=== PATIENT | female | born 1975 | race African-American/Black ===

== ENCOUNTER 2017-06-21 18:50 | Emergency (ER) | payer SELFPAY ==
[~2017-06-21] VITALS: Ht 162.6 cm; Wt 63.5 kg
[2017-06-21 19:01] VITALS: Ht 162.6 cm; Wt 63.5 kg
--- NOTE | 2017-06-21 20:52 | EN ---
Date/Time of Note Date/Time of Note DATE: 06/21/17 TIME: 20:49 ER Progress Note This 41-year-old female who presented to the emergency department today complaining of abdominal pain for the past couple of days. Patient has had back pain and abdominal pain intermittently for the past few weeks. Patient indicated that she started having some diarrhea yesterday. Patient indicated that she was 21 weeks . This was not mentioned in triage and therefore I did place a call to the labor and delivery department. At this time [facility] is afebrile and otherwise well-appearing I do not feel that she has an acute surgical abdomen at this time. Patient was sent up to labor and delivery for further evaluation. I did place a call to them and they recommended that the patient be brought up as she is greater than 21 weeks based on patient's estimated date of delivery of October 22. AUGUSTINE STUART PA-C Jun 21, 2017 20:51
--- NOTE | 2017-06-22 04:54 | ERD ---
ER Documentation Chief Complaint Date/Time DATE: 06/22/17 TIME: 04:47 Chief Complaint Mid umbillical pain since last night with diarrhea last night HPI This a 41-year-old female who presents to the emergency department today complaining of some umbilical pain for the past couple of days. Patient states that 2 weeks ago she had pain on both sides of her stomach and her back. States that she saw her doctor 3 weeks ago and had a normal ultrasound. States that she is 21 weeks . States she has some nausea but no vomiting. States she does have some mild diarrhea. Denies any dysuria, fevers or chills, vaginal bleeding. States she has not taken any medication for the pain. ROS All systems reviewed and are negative except as per history of present illness. Allergies Allergies: Coded Allergies: No Known Allergy (Unverified , 06/21/17) PMhx/Soc Medical and Surgical Hx: pt denies Medical Hx, pt denies Surgical Hx Hx Alcohol Use: No Hx Substance Use: No Hx Tobacco Use: No Smoking Status: Never smoker Physical Exam Vitals Vital Signs Date Time Temp Pulse Resp B/P Pulse Ox O2 Delivery O2 Flow Rate FiO2 06/21/17 19:01 98.2 77 20 135/78 98 Physical Exam Const: No acute distress Head: Atraumatic Eyes: Normal Conjunctiva ENT: Normal External Ears, Nose and Mouth. Neck: Full range of motion..~ No meningismus. Resp: Clear to auscultation bilaterally Cardio: Regular rate and rhythm, no murmurs Abd: Soft, mild periumbilical tenderness non distended. Normal bowel sounds. No tenderness McBurney's. No right upper quadrant tenderness Skin: No petechiae or rashes Back: No midline or flank tenderness. No CVA tenderness. Ext: No cyanosis, or edema Neur: Awake and alert Psych: Normal Mood and Affect Procedures/MDM This is a 41-year-old female who presents the emergency department today complaining of some abdominal pain and diarrhea for the past couple of days. Patient is a patient of Dr. Farmer and patient indicated having a normal ultrasound 3 weeks ago. Patient denies any vaginal bleeding. Patient is afebrile and otherwise well-appearing. Her vital signs are stable. Her abdominal pain appears to be more periumbilical pain and likely related to increasing size of gravid uterus. I have low suspicion for acute surgical abdomen. She has no tenderness McBurney's and no right upper quadrant tenderness. Patient estimated date of delivery is October [address] a call to labor and delivery triage who stated the patient is actually somewhere between 22 and 23 weeks based on her estimated date of delivery and she was therefore sent up to OB for clearance. Patient did not return back here to the emergency department. Symptoms at this time is consistent with abdominal pain and . Patient is stable to be moved to labor and delivery for further evaluation. Discussed the patient with Dr. Moreno and he is in agreement with the plan Departure Diagnosis: Primary Impression: Abdominal pain during in second trimester Condition: AUGUSTINE Willis PA-C Jun 22, 2017 04:54
== END 2017-06-21 21:05 | disposition home or self-care (01) ==
LOC: FTE 18:50
DX: O26.892 Other specified pregnancy related conditions, second trimester (principal); R10.33 Periumbilical pain; Z3A.21 21 weeks gestation of pregnancy
CPT/HCPCS: 99282